=== PATIENT | female | born 1995 | race Caucasian/White ===

== ENCOUNTER 2020-02-02 16:48 | Observation (INO) | payer OTHER, MEDICAID, SELFPAY ==
--- NOTE | ~2020-02-02 | US_ITS ---
EXAMINATION: US right upper quadrant DATE: 02/04/2020 08:18 INDICATION: Right upper quadrant pain TECHNIQUE: Multiple grayscale and Doppler ultrasound images of the abdomen were obtained. COMPARISON: CT dated 02/02/2020 FINDINGS: The region of the pancreas is obscured. Liver has normal echogenicity and contour, with a smooth surf reese. No liver lesion identified. No intrahepatic biliary duct dilation suspected. Portal venous flow was seen in the hepatopetal, normal direction and has normal Doppler waveform. There few small mobile and shadowing gallstones within the relatively decompressed gallbladder. There is gallbladder wall t hickening even accounting for the degree of decompression. There are a few echogenic foci within the gallbladder wall which could represent either calcification or adenomyomatosis. Sonographic Hassan si gn was reported as negative by the traffic expert.The common bile duct measures up to 5 mm in diameter w hich is normal. IMPRESSION: 1. Cholelithiasis with thickened gallbladder wall but without dilation of the gallbladder and without sonographic Hassan's sign and would favor adenomyomatosis and chronic over acute cholecystitis. Reviewed, dictated and finalized at location A. IMPRESSION: 1. Cholelithiasis with thickened gallbladder wall but without dilation of the g allbladder and without sonographic Hassan's sign and would favor adenomyomatosi s and chronic over acute cholecystitis.
--- NOTE | ~2020-02-02 | CT_ITS ---
EXAMINATION: CT abdomen pelvis w con EXAM DATE: 02/02/2020 20:50 INDICATION: Purulent drainage from umbilicus. Abdominal pain. TECHNIQUE: Spiral CT of the abdomen and pelvis was performed following intravenous injection of 100 m L Omnipaque 350. Axial, coronal and sagittal images were reviewed. The dose-length product (DLP) fo r this examination was 473.20 mGy-cm. The exposure was tailored according to patient size (auto mA e xposure control), and iterative reconstruction (ASIR) was used as additional dose reduction technique . Comparison is made to prior examination from 10/31/2010. FINDINGS: The liver, spleen, adrenal glands and pancreas are unremarkable. Gallbladder mucosa is enh ancing, and wall may be thickened, but no adjacent inflammation or calcified cholelithiasis. Recommen d clinical correlation. Portal and splenic veins are patent. Kidneys enhance symmetrically. There is no hydronephrosis. There is IUD which appears to be centrally located within the endometrium, ex pected position. The bladder is unremarkable. There is no retroperitoneal or pelvic lymphadenopathy . Large amount of inflammation, induration along the course of the umbilicus, from the abdominal wa ll to the skin surface, without focal abscess or intra-abdominal abnormality deep to the umbilicus. The appendix is normal. The stomach and small bowel are unremarkable. There is expected amount of c olonic stool. No free intraperitoneal gas. The heart is normal in size. There are no pericardial or pleural effusions. The lung bases are unremarkable. The bones are unremarkable. IMPRESSION: 1. Large amount of induration, inflammation along the umbilical tract to the abdominal wall without abscess or emphysema. Consider cellulitis. 2. Gallbladder appearance with some nonspecific wall thickening suspected but no adjacent inflammati on, dilation or calcified cholelithiasis. If there is right upper quadrant tenderness, consider follo w-up ultrasound. Reviewed, dictated and finalized at location A. IMPRESSION: 1. Large amount of induration, inflammation along the umbilical tract to the a bdominal wall without abscess or emphysema. Consider cellulitis. 2. Gallbladder appearance with some nonspecific wall thickening suspected but no adjacent inflammation, dilation or calcified cholelithiasis. If there is rig ht upper quadrant tenderness, consider follow-up ultrasound.
[2020-02-02 17:02] VITALS: BP 131/80; PULSE 116; RESP 22; TEMP 37.1; O2SAT 100
[2020-02-02 19:47] LABS: Basophils Absolute Auto 0.1 K/mm3 (0.0-0.1); Basophils Percent Auto 0.3 % (0.2-1.2); Eosinophils Absolute Auto 0.2 K/mm3 (0-0.3); Hematocrit 38.9 % (37.0-47.0); Immature Granulocyte Absolute 0.05 K/mm3 (0.00-0.031); Immature Granulocyte Percent A 0.3 % (0-0.5); Lymphocytes Absolute Auto 3.55 K/mm3 (0.9-3.2); Lymphocytes Percent Auto 21.4 % (18.3-44.2); Mean Corpuscular HGB Conc 33.4 g/dl (32-36); Mean Corpuscular Hemoglobin 30.5 pg (26-34); Mean Corpuscular Volume 91.3 fl (80-100); Mean Platelet Volume 9.1 fl (7.4-10.4); Monocytes Absolute Auto 1.4 K/mm3 (0.1-0.6); Monocytes Percent Auto 8.2 % (2.6-8.5); Neutrophils Absolute Auto 11.4 K/mm3 (1.3-6.7); Neutrophils Percent Auto 68.8 % (45.5-73.1); Platelet Count Result 392 k/mm3 (150-375); Red Blood Count 4.26 M/mm3 (4.2-5.4); Red Cell Distribution Width 13.2 % (11.5-14.5); White Blood Count 16.6 K/mm3 (4.5-10.0)
[2020-02-02 20:01] LABS: Blood Urea Nitrogen 13 mg/dL (7-17); CRP 2.2 mg/dL (<1.0); Calcium 8.9 mg/dL (8.4-10.2); Carbon Dioxide 27 mmol/L (22-30); Chloride 103 mmol/L (98-107); Estimated CRCL calculation 106 ml/min; Estimated Glomerular Filt Rate > 60; Glucose 84 mg/dL (65-105); Potassium 3.7 mmol/L (3.4-5.0); Sodium 137 mmol/L (137-145)
[2020-02-02] MEDS: MORPHINE SULFATE 4 MG/ML INJ IV PUSH (20:08)
[2020-02-02] MEDS: ONDANSETRON INJ 4 MG/2 ML VIAL IV PUSH (20:08)
--- NOTE | 2020-02-02 20:08 | ED.WOUNDLAC ---
HPI - Wound/Laceration General Chief Complaint: Wound/Laceration <Matilde Cruz PA-C - Last Filed: 02/02/20 22:09> Stated Complaint: belly button bleeding <MANDEEP Silva Last Filed: 02/02/20 22:09> Time Seen by Provider: 02/02/20 18:25 <Matilde Cruz PA-C - Last Filed: 02/02/20 22:09> Source: patient <MANDEEP Silva Last Filed: 02/02/20 22:09> Mode of arrival: ambulatory <MANDEEP Silva Last Filed: 02/02/20 22:09> Limitations: no limitations <MANDEEP Silva Last Filed: 02/02/20 22:09> History of Present Illness HPI narrative: This is a 24 year old female that presents to the ER for umbilicus wound since yesterday. Reports she noted some redness and pain to the area yesterday. Reports today she started to have pus draining from the area. Denies fever, nausea, vomiting or dysuria. <MANDEEP Silva Last Filed: 02/02/20 22:09> Related Data Home Medications: Home Medications Medication Instructions Recorded Confirmed No Home Medications 02/02/20 02/02/20 <Matilde Cruz PA-C - Last Filed: 02/02/20 22:09> Allergies/Adverse Reactions: Allergies Allergy/AdvReac Type Severity Reaction Status Date / Time No Known Allergies Allergy Verified 02/02/20 17:07 <Matilde Cruz PA-C - Last Filed: 02/02/20 22:09> Review of Systems Review of Systems: Narrative: CONSTITUTIONAL: Denies fever GASTROINTESTINAL: Reports abdominal pain. Denies nausea, vomiting, or diarrhea. GENITOURINARY: Denies dysuria or hematuria. <MANDEEP Silva Last Filed: 02/02/20 22:09> All systems reviewed & are unremarkable except as noted in HPI and below <MANDEEP Silva Last Filed: 02/02/20 22:09> FOR[facility]LY [facility], [facility] Past Medical History Medical History: Medical History (Updated 02/02/20 @ 22:45 by Kim Quiroz MD) History of depression <Matilde Cruz PA-C - Last Filed: 02/02/20 22:09> Surgical History Surgical History: Surgical History (Updated 02/02/20 @ 20:13 by Matilde Cruz PA-C) History of tonsillectomy <Matilde Cruz PA-C - Last Filed: 02/02/20 22:09> Exam Narrative: Exam Narrative: GENERAL: Well-appearing, well-nourished, and in mild acute distress due to pain. HEAD: Normocephalic, atraumatic. EYES: EOMI. CHEST: Clear to auscultation. No respiratory distress. No wheezes rales or rhonchi HEART: Regular rate and rhythm. No murmur heard. Normal peripheral pulses. ABDOMEN: Soft, nondistended, normal active bowel sounds. Umbilicus with small amount of purulent drainage with mild surrounding redness, tender to palpation EXTREMITIES: Normal range of motion. No edema. SKIN: Warm, dry, no rash. NEURO: No focal deficits. Alert and oriented x3. PSYCH: Normal mood and affect <Matilde Cruz PA-C - Last Filed: 02/02/20 22:09> Course TOP PRECIPITATOR OPERATOR HELPER/PA Physician Supervision For this patient encounter, I reviewed the TOP PRECIPITATOR OPERATOR HELPER or PA documentation, treatment plan, and medical decision making; and I had [id number] time with this patient. Saw patient at bedside with physician laboratory chemical assistant. Patient has purulent drainage emerging from the umbilicus. CT shows no evidence of abscess, but shows extensive cellulitis down to the abdominal wall. Patient is tachycardic, tachypneic, and has elevated white count meeting criteria for sepsis. Patient advised that she needs to stay in the hospital for IV antibiotics. Patient states she has a court appearance tomorrow morning and is tearful and crying and stating that she cannot be admitted. Patient allowed to calm down and nursing staff as well as PA spoke with patient. I additionally spoke with patient again and she is agreeable to admission to the hospital. I assumed care of patient from PA at her shift and then made arrangements for patient to be admitted to hospitalist service. <Kim Quiroz MD - Last Filed: 02/02/20 22:45> Consultations Consultation #1: Zoran
[2020-02-02 20:09] LABS: Erythrocyte Sedimentation Rate 19 mm/hr (0-20)
[2020-02-02 20:33] LABS: Lactic Acid Reflex 0.7 mmol/L (0.7-2.1)
[2020-02-02] MEDS: SODIUM CHLORIDE 0.9% IV 1,000 ML 999 ML IV CONT (21:30)
--- NOTE | 2020-02-02 22:22 | PC.NURSE ---
Addendum entered by Kaitlin Holm RN 02/02/20 22:44: BELOW DOCUMENTATION WAS DONE BY KAITLIN HOLM RN Original Note: 1005- This RN, heard loud noise, screaming from pt room 13. ALLYSSA Clayton came to me and stated this patient being verbally abusive to the CLIENT SUPPORT ASSOCIATE, stating she was not going to stay until she could go out and get a cigarette. This RN and Case Picker went to the patients room to see what the noise came from. Patient cursing, crying stating I didn't throw anything, a nurse told me they would go outside with me to smoke on their next round if they could get it in . I asked who told her that, she continued to yell and scream, curse me about being in the room, why the House Sup. was in the room , and why security was outside. Told patient this is a non smoking facility, she is not allowed to go outside and smoke. She continued yelling, crying. She is also yelling at her visitor who is attempting to calm the patient down. Patient continued to yell, get out of here. We asked the patient if she wanted to be admitted, she yelled I need time, I have a court date tomorrow, I may go to skilled nursing . The housekeeper head and I left the room to give her a moment.
--- NOTE | 2020-02-02 22:31 | PC.NURSE ---
Addendum entered by Kaitlin Holm RN 02/02/20 22:44: BELOW DOCUMENTATION WAS DONE BY KAITLIN HOLM RN Original Note: 1003- This RN could hear patient yelling , screaming & cursing. We returned to the room, she was on the phone yelling, screaming, cursing, crying. We asked what was going on. She continued to demand going outside to have a cigarette, she stated why did someone tell me they would go outside with me to smoke, why are you in here?? Explained to her we returned to her room due to her behavior. Patient was told this behaviour must be stopped. I told patient we could ask ED MD for med or a nicotine patch. that is not the same, I want to have a cigarette . We asked again if she was going to stay, I don't fucking know you told me you would give me a minuete . At that time, I told her she had 5 minutes, again re-iterated her behaviour must stop.
--- NOTE | 2020-02-02 22:35 | PC.NURSE ---
Addendum entered by Kaitlin Holm RN 02/02/20 22:45: BELOW DOCUMENTATION WAS DONE BY KAITLIN HOLM RN Original Note: 1017- I returned to the room to see if this patient wanted to be admitted. She then stated yes she would stay, she asked if she could have food delivered. As I began to answer her, she again started yelling , crying cursing. I offered her a lunch box. I dont fucking want that i am starving and have been here since 4:00. Dr. Quiroz then entered the room to discuss admission with the patient. This patient continued to state she did not want me in the room. I stepped out. Food box left in the room with the patient.
[2020-02-02 23:31] VITALS: BP 99/77; PULSE 87; RESP 18; O2SAT 100
[2020-02-02] MEDS: LACTATED RINGERS 1,000 ML 125 ML IV CONT (23:45)
--- NOTE | 2020-02-02 23:52 | ADMGEN ---
This patient, Gretta Andres, was admitted to 2 Medical Room 260-. Patient/family oriented to hospital policies and general routines including ID bracelet, bed and alarms, visiting hours, pain management, procedures, bathroom and other care routines, personal items, smoking policy, room service/diet, and visiting hours. Valuables list has been completed. Information on how to activate the Rapid Response Team has been discussed. Patient/Family are encouraged to report perceived risks to care and to ask questions if they do not understand what they are told or what they should do.
[2020-02-03] MEDS: NICOTINE (*PBKC) 21 MG PATCH 1 PATCH TRANSDERM (00:04)
[2020-02-03 00:36] VITALS: BP 105/56; PULSE 94; RESP 18; TEMP 36.1; O2SAT 100; BMI 29.6
[2020-02-03] MEDS: ACETAMINOPHEN 325 MG TABLET 650 MG PO (03:29)
[2020-02-03 06:00] VITALS: BP 109/55; PULSE 80; RESP 16; TEMP 35.8; O2SAT 96
[2020-02-03] MEDS: LACTATED RINGERS 1,000 ML 125 ML IV CONT (06:08)
--- NOTE | 2020-02-03 09:48 | PM.IMHP ---
H&P: HPI History of Present Illness Chief complaint: Sepsis, cellulitis Narrative: Gretta Andres is a 24 year old female previously healthy who presented to the ER from work when she developed drainage from her belly button. The patient noticed erythema and pain in her umbilical region the day before presentation. Later that evening or the following days she noticed some purulent-appearing drainage from the area. She denies any fevers or chills or known injury to her belly button. She does have a umbilical piercing but has not had any Jewelery present for over a year. She reports that the pain is just around her umbilicus. She denies any history of recurrent skin infections or abscesses. No in her family has had a history of recurrent skin infections either. She lives with her 2 in 3-year-old children. Review of Systems Review of Systems: Narrative: 12 systems were reviewed with pertinent positives and negatives per HPI. Except as documented in the HPI, all other systems were reviewed and are negative. However was limited as the patient was a poor historian and less than cooperative with the history taking process. REPLACED BY [facility] Past Medical History Medical History (Updated 02/02/20 @ 22:45 by Kim Quiroz MD) History of depression Surgical History Surgical History (Updated 02/02/20 @ 20:13 by Matilde Cruz PA-C) History of tonsillectomy Family History Family History (Updated 02/02/20 @ 23:[address] RN) Mother Cancer Social History Social History (Updated 02/03/20 @ 09:53 by Olivia Ellis DO) Smoking packs per day: 1.5 Smoking cigarettes per day: 30.0 Years smoked: 8 Smoking pack-years: 12.00 Smoking status: Heavy tobacco smoker Tobacco type: cigarettes Alcohol intake: never Substance use: current Substance use type: marijuana Living arrangements: with family Additional living arrangements comments: She lives with her 2 and 3-year-old children. Occupation/Education: occupation Additional occupation/education comments: She works at [employer]. Spiritual care concerns: No Agree to blood products: Yes Meds Home Medications and Allergies Home Medications Medication Instructions Recorded Confirmed Type No Home Medications 02/02/20 02/02/20 History Allergies Allergy/AdvReac Type Severity Reaction Status Date / Time No Known Allergies Allergy Verified 02/02/20 17:07 Vital Signs Vital Signs - 24 hr 02/02/20 17:02 02/02/20 23:31 02/03/20 00:36 Temperature 98.7 F 96.9 F L Pulse Rate 116 H 87 94 Respiratory Rate 22 H 18 18 Blood Pressure 131/80 99/77 L 105/56 L Pulse Oximetry 100 100 100 02/03/20 06:00 Temperature 96.4 F L Pulse Rate 80 Respiratory Rate 16 Blood Pressure 109/55 L Pulse Oximetry 96 Exam Narrative: Exam Narrative: PHYSICAL EXAM: WEIGHT 75.8 kg BMI 29.6 General: No acute distress, well-developed well-nourished, appears stated age HEENT: Mucous membranes are moist, no oral pharyngeal erythema, pupils are equal and reactive, head is normocephalic atraumatic Neck: No lymphadenopathy, trachea midline, no JVD Respiratory: Clear to auscultation bilaterally, no increased work of breathing Cardiovascular: Normal S1-S2, 2+ bilateral radial and pedal pulses the, regular rate and rhythm Gastrointestinal: Purulence drainage from the umbilicus, no surrounding erythema, significant tenderness immediately surrounding the umbilicus, normoactive bowel sounds, nondistended Skin: Multiple tattoos, normal temperature, non jaundice Extremities: No clubbing, cyanosis or edema Neurological: Alert, arousable, speech is clear, no facial asymmetry Psychiatric: Flat affect, patient is recur calcified trend in talking to staff, will not need eye contact H&P: Results Labs Labs: Short CBC 02/02/20 Range/Units 19:41 WBC 16.6 H (4.5-10.0) K/mm3 Hgb 13.0 (12.0-15.0) g/dL Hct 38.9 (37.0-47.0) % Plt Co
[2020-02-03 11:29] LABS: Basophils Absolute Auto 0.1 K/mm3 (0.0-0.1); Basophils Percent Auto 0.5 % (0.2-1.2); Eosinophils Absolute Auto 0.4 K/mm3 (0-0.3); Eosinophils Percent Auto 3.3 % (0-4.4); Hematocrit 38.3 % (37.0-47.0); Hemoglobin 12.5 g/dL (12.0-15.0); Immature Granulocyte Absolute 0.02 K/mm3 (0.00-0.031); Immature Granulocyte Percent A 0.2 % (0-0.5); Lymphocytes Absolute Auto 3.37 K/mm3 (0.9-3.2); Lymphocytes Percent Auto 27.2 % (18.3-44.2); Mean Corpuscular HGB Conc 32.6 g/dl (32-36); Mean Corpuscular Hemoglobin 30.6 pg (26-34); Mean Corpuscular Volume 93.6 fl (80-100); Monocytes Absolute Auto 1.1 K/mm3 (0.1-0.6); Monocytes Percent Auto 9.1 % (2.6-8.5); Neutrophils Absolute Auto 7.4 K/mm3 (1.3-6.7); Neutrophils Percent Auto 59.7 % (45.5-73.1); Platelet Count Result 383 k/mm3 (150-375); Red Blood Count 4.09 M/mm3 (4.2-5.4); Red Cell Distribution Width 13.2 % (11.5-14.5); White Blood Count 12.4 K/mm3 (4.5-10.0)
[2020-02-03 14:00] VITALS: BP 122/81; PULSE 85; RESP 19; TEMP 36.2; O2SAT 100
--- NOTE | 2020-02-03 16:10 | PM.IMPN ---
Progress Note: A&P Assessment and Plan (1) Sepsis: Qualifiers: Sepsis acute organ dysfunction status: without acute organ dysfunction Sepsis type: sepsis due to unspecified organism Qualified Code(s): A41.9 - Sepsis, unspecified organism Code(s): A41.9 - Sepsis, unspecified organism Status: Acute Assessment and Plan: The patient met SIRS criteria at presentation to the ED with HR 116, RR 22, and WBC 16.6. Lactic was WNL at 0.7. CT abd/pelvis revealed inflammation and induration along the course of the umbilicus, consistent with cellulitis, extending from the abdominal wall to the skin surface without focal abscess or intra-abdominal abnormality deep to the umbilicus. Blood cultures were obtained and are pending. The pt received 1L fluid bolus in the ED She is tolerating PO intake well so I will discontinue IV fluids Continue IV zosyn (2) Cellulitis: Qualifiers: Site of cellulitis: trunk Site of cellulitis of trunk: abdominal wall Qualified Code(s): L03.311 - Cellulitis of abdominal wall Code(s): L03.90 - Cellulitis, unspecified Status: Acute Assessment and Plan: Preliminary wound culture reveals gram positive cocci and gram negative bacilli. WBC is improving and is 12.4 today. Her pain has improved and the area of induration has decreased significantly in size per pt. Will discontinue cefazolin and begin zosyn for better gram negative coverage Await final culture results (3) Tobacco dependence: Code(s): F17.200 - Nicotine dependence, unspecified, uncomplicated Status: Acute Assessment and Plan: Nicoderm patch while inpatient I spent 10 minutes discussing the importance of smoking cessation with the pt today (4) Right upper quadrant pain: Code(s): R10.11 - Right upper quadrant pain Status: Acute Assessment and Plan: CT abd/pelvis revealed nonspecific wall thickening of the gallbladder without adjacent inflammation, dilation, or calcified cholelithiasis. She has mild RUQ tenderness on physical exam and reports occasional post-prandial pain. Will order RUQ US (5) Urinary hesitancy: Code(s): R39.11 - Hesitancy of micturition Status: Acute Assessment and Plan: Will order UA. Subjective Date/time seen: 02/03/20 16:10 Interval history: Mrs. Andres is seen and examined at bedside. She reports that her abdominal wall discomfort has improved significantly and is now a 5/10. She states that previously, it was 10/10. She states that she can now move without having pain. She denies fever and chills. Her appetite is good. She denies SOB, cough, and chest pain. She denies headaches, lightheadedness, and dizziness. She reports intermittent urinary hesistancy. She does report occasional discomfort after eating. She denies nausea and vomiting. Review of Systems Review of Systems: All systems reviewed & are unremarkable except as noted in HPI and below Exam Narrative: Exam Narrative: General: Well-developed, well-nourished, and cooperative 24 y.o. female sitting in the semi-recumbant position in bed. She is in no acute distress. HEENT: Normocephalic and atraumatic. Sclera anicteric. Conjunctivae and lids normal. PERRL. EOMI. Mucous membranes moist. Posterior pharynx without erythema or exudate. Neck: Supple. No lymphadenopathy or masses. Cardiac: Regular rate and rhythm. S1 and S2 normal. Lungs: Normal respiratory effort. Lungs are clear to auscultation bilaterally. Abdomen: Bowel sounds present in all four quadrants. Abdomen is soft. She has periumbilical tenderness to palpation. She has mild RUQ tenderness. Hassan sign is negative. Extremities: No lower extremity edema. Palpable DP and PT bilaterally. Neurological: Alert and oriented x3. No focal neurological deficits noted. Speech is clear. Skin: 1x1cm indurated area at the 12:00 aspect of the umbilicus. Small abrasions in th
[2020-02-03 18:16] LABS: Add Urine Microscopic? NO; Appearance Urine Clear (Clear); Bilirubin Urine Negative (Negative); Blood Urine Negative (Negative); Color Urine Colorless (Yellow); Glucose Urine UA Negative (Negative); Ketones Urine Negative (Negative); Leukocyte Esterase Ur Negative LEU/UL (Negative); Nitrate Urine Negative (Negative); Protein Urine Negative (Negative); Specific Grav Ur 1.009 (1.001-1.035); Urobilinogen Urine Negative mg/dL (<2.0)
[2020-02-03] MEDS: IBUPROFEN 400 MG TABLET PO (19:59)
[2020-02-03 22:00] VITALS: BP 115/61; PULSE 87; RESP 16; TEMP 36.1; O2SAT 100
[2020-02-04] MEDS: NICOTINE (*PBKC) 21 MG PATCH 1 PATCH TRANSDERM (04:19)
[2020-02-04 05:15] LABS: Basophils Absolute Auto 0.1 K/mm3 (0.0-0.1); Basophils Percent Auto 0.4 % (0.2-1.2); Eosinophils Absolute Auto 0.5 K/mm3 (0-0.3); Eosinophils Percent Auto 3.7 % (0-4.4); Hematocrit 37.3 % (37.0-47.0); Hemoglobin 11.9 g/dL (12.0-15.0); Immature Granulocyte Absolute 0.04 K/mm3 (0.00-0.031); Immature Granulocyte Percent A 0.3 % (0-0.5); Lymphocytes Absolute Auto 4.32 K/mm3 (0.9-3.2); Lymphocytes Percent Auto 35.1 % (18.3-44.2); Mean Corpuscular HGB Conc 31.9 g/dl (32-36); Mean Platelet Volume 9.5 fl (7.4-10.4); Monocytes Absolute Auto 1.2 K/mm3 (0.1-0.6); Monocytes Percent Auto 9.4 % (2.6-8.5); Neutrophils Absolute Auto 6.3 K/mm3 (1.3-6.7); Neutrophils Percent Auto 51.1 % (45.5-73.1); Platelet Count Result 382 k/mm3 (150-375); Red Blood Count 3.97 M/mm3 (4.2-5.4); Red Cell Distribution Width 13.3 % (11.5-14.5); White Blood Count 12.3 K/mm3 (4.5-10.0)
[2020-02-04 05:20] VITALS: BP 116/67; PULSE 69; RESP 16; TEMP 36.2; O2SAT 100
[2020-02-04 05:27] LABS: Alanine Aminotransferase 25 U/L (4-35); Albumin Level 3.5 g/dL (3.5-5.1); Alkaline Phosphatase 82 U/L (38-126); Aspartate Amino Transferase 23 U/L (14-36); Bilirubin,Total 0.1 mg/dL (0.2-1.3); Blood Urea Nitrogen 15 mg/dL (7-17); Calcium 8.8 mg/dL (8.4-10.2); Carbon Dioxide 29 mmol/L (22-30); Chloride 104 mmol/L (98-107); Estimated CRCL calculation 93 ml/min; Estimated Glomerular Filt Rate > 60; Glucose 93 mg/dL (65-105); Potassium 4.1 mmol/L (3.4-5.0); Sodium 137 mmol/L (137-145)
--- NOTE | 2020-02-04 10:12 | PC.NURSE ---
MAR edits made to correct name of nurse who administered from Lesia Hernandez to Sharon Vega
--- NOTE | 2020-02-04 11:39 | PM.CNGS ---
Assessment and Plan Assessment and plan (1) Cellulitis: Qualifiers: Site of cellulitis: trunk Site of cellulitis of trunk: abdominal wall Qualified Code(s): L03.311 - Cellulitis of abdominal wall Code(s): L03.90 - Cellulitis, unspecified Status: Acute Assessment and Plan: The patient has umbilical cellulitis that seems to be improving with current treatment. I reviewed the CT scan and discussed with the patient in detail. There is no evidence of an abscess on the CT scan or on my exam. WBC continues to improve and the patient seems to be improving clinically as well. There may have been some drainage from the umbilicus that was cultured in the ER, but this only showed growth of normal skin jeramy. I did discuss the case with Dr. Luis. I would recommend continuing with antibiotic therapy for the cellulitis and follow-up with her PCP. It would be okay at this point to switch the patient to oral antibiotic therapy from our standpoint and be discharged home. Thank you for allowing me to evaluate the patient in consultation. Please let us know if there are any surgical needs in the future. (2) Tobacco dependence: Code(s): F17.200 - Nicotine dependence, unspecified, uncomplicated Status: Chronic Assessment and Plan: Encouraged cessation. (3) Cholelithiasis: Code(s): K80.20 - Calculus of gallbladder without cholecystitis without obstruction Status: Acute Assessment and Plan: No evidence of acute cholecystitis. This is an incidental finding that does not correlate with her current symptoms. She is asymptomatic at this time and has been tolerating a diet. I suggested following a low fat diet in the future and discussed the complications that can arise with gallbladder disease, including the signs and symptoms to be aware of. If she becomes symptomatic or has new issues regarding her gallbladder, then we would be happy to evaluate her on an outpatient basis in the future. History of Present Illness Consult details Consult date: 02/11/20 Reason for consult: other (Umbilical cellulitis) Requesting physician: Nubia Mi PA-C Narrative: This is a 24-year-old female who is otherwise healthy, and presented to the emergency department on 02/02/20 with umbilical pain. The patient reportedly developed some umbilical pain with redness 1-2 days prior to coming into the emergency department. She denies any injury to the umbilical area or recent piercings. Denies fevers, chills, nausea, or vomiting. She reports that she started to have worsening pain and pus-like bloody drainage from the umbilicus and decided to present to the ER for further evaluation. CT scan of the abdomen and pelvis in the emergency department showed a large amount of induration, inflammation along the umbilical tract to the abdominal wall without abscess or emphysema, likely cellulitis. Also incidentally noted was nonspecific suspected gallbladder wall thickening with no adjacent inflammation, dilation, or calcified cholelithiasis. White blood cell count 16,600 and CRP 2.2. The patient was admitted to the Hospitalist service and started on IV antibiotics. She has been improving on the antibiotics and her white blood cell count is now down to 12,300. Right upper quadrant ultrasound was also ordered due to the incidental findings on the CT scan, and showed cholelithiasis with a thickened gallbladder wall, with no other signs of acute cholecystitis. Our service has been consulted to evaluate the umbilical cellulitis. The patient is now being seen on the medical floor. She reports her umbilical pain has improved significantly since admission. She also denies any drainage from the umbilicus since admission. Reports the umbilicus is tank tender. Reports having a previous umbilical piercing, but has not had any jewelry in this for years. No history of skin infections or MRSA infections in the past. Reports that she is tolerating a reg
--- NOTE | 2020-02-04 12:30 | PM.DS ---
DS: Diagnosis Admitting Diagnosis Admitting Diagnosis: Cellulitis of abdominal wall Discharge Diagnosis (1) Sepsis: Qualifiers: Sepsis acute organ dysfunction status: without acute organ dysfunction Sepsis type: sepsis due to unspecified organism Qualified Code(s): A41.9 - Sepsis, unspecified organism Code(s): A41.9 - Sepsis, unspecified organism Status: Resolved (2) Cellulitis: Qualifiers: Site of cellulitis: trunk Site of cellulitis of trunk: abdominal wall Qualified Code(s): L03.311 - Cellulitis of abdominal wall Code(s): L03.90 - Cellulitis, unspecified Status: Acute (3) Tobacco dependence: Code(s): F17.200 - Nicotine dependence, unspecified, uncomplicated Status: Chronic (4) Right upper quadrant pain: Code(s): R10.11 - Right upper quadrant pain Status: Resolved (5) Urinary hesitancy: Code(s): R39.11 - Hesitancy of micturition Status: Acute DS: Summary Hospital Course Reason for hospitalization: Cellulitis Hospital Course: Mrs. Andres is a 24 y.o. female with PMH significant for tobacco dependence who presented to the ED due to c/o purulent drainage from her umbilicus with associated erythema and pain. She has a piercing in the area but reported no jewelry use for years. The pt met SIRS criteria in the ED with HR 116, RR 22, and WBC 16.6. Blood and wound cultures were obtained. Initial workup in the ED revealed WBC 12,300, Hb 11.9, Hct 37.3, metabolic panel unremarkable, and lactic WNL at 0.7. CT abd/pelvis revealed inflammation and induration along the course of the umbilicus, consistent with cellulitis, extending from the abdominal wall to the skin surface without focal abscess or intra-abdominal abnormality deep to the umbilicus. She was treated with IV antibiotics and given 1L fluid bolus. She was admitted to the hospitalist service for further evaluation and treatment. Wound culture revealed gram positive cocci and gram negative bacilli so IV zosyn was initiated for better gram negative coverage. The erythema, induration, and pain improved significantly with antibiotics. Final culture revealed normal skin jeramy. She complainted of mild urinary hesistancy and UA was negative for UTI. General surgery was consulted for her umbilical cellulitis and recommended continued antibiotic therapy. There was an incidental finding of nonspecific wall thickening of the gallbladder without adjacent inflammation, dilation, or calcified cholelithiasis. RUQ US revealed cholelithiasis with thickened gallbladder wall but without dilation of the gallbladder and without sonographic Hassan's sign. She was evaluated by general surgery and encouraged to follow-up outpatient should she develop symptoms to warrant elective cholecystectomy. Smoking cessation was discussed and encouraged at length. Pharmacologic options were discussed and offered and the pt declined. Additional instructions are listed below. She was discharged in stable condition. Time spent discussing smoking cessation with patient: more than 10 minutes Status at Discharge Functional status at discharge: independent ambulation Overall status at discharge: patient is progressing back to baseline Time Spent with Patient Time attestation: Total time spent providing and/or coordinating discharge services: 30 minutes Exam Narrative: Exam Narrative: General: Well-developed, well-nourished, 24 y.o. female who appears stated age lying supine in bed. She is in no acute distress. HEENT: Normocephalic and atraumatic. Sclera anicteric. EOMI. Mucous membranes moist. Neck: Supple. No lymphadenopathy or masses. Cardiac: Regular rate and rhythm. S1 and S2 normal. Lungs: Lungs are clear to auscultation bilaterally. Abdomen: Bowel sounds normoactive. Abdomen is soft and non-distended. She has mild periumbilical tenderness to palpation at site of cellulitis. No RUQ tenderness. Extremities: No lower extremity edema. Palpabl
--- NOTE | 2020-02-04 13:18 | PC.NURSE ---
Patient called diamond cutter light and was very upset about her food tray being taken out of her room while she was sleeping. I went into patients room to apologize for the misunderstanding. The patient care professional thought she was finished because over half of tray was gone and patient was sleeping. Patient then went on to cuss the patient care professional and myself out and demanded we get out of her room. Patient went into restroom and slammed the door. We left room and ordered her another tray. When taking her new tray into room patient was calm.
[2020-02-04 14:00] VITALS: BP 120/66; PULSE 78; RESP 16; TEMP 36.9; O2SAT 99
--- NOTE | 2020-02-04 16:17 | PC.NURSE ---
Patients grandmother arrived to pick patient up for discharge. Went into room to help patient get packed up to go home and patient refused to get up, patient ignored patient home health caregiver and myself when talking with her. Patient began to become verbally confrontational using foul language towards myself and other staff. At this time security was called to come to patients room. Patient was wanting to speak with doctor. I called Dr. Ashton and discussed patient. Nubia SPIVEY was in patients room twice today explaining discharge instructions and also Latoya GONZALEZ had seen patient today and was agreeable for patient to be discharged. Finally after talking with patient about what the doctor had said she packed her stuff up for discharge.
== END 2020-02-04 16:08 | disposition home or self-care (01) ==
LOC: ANHED 22:56 → ANH2MED 22:59
PROVIDERS: Physician Assistant; Admitting Provider Internal Medicine; Emergency Provider Emergency Medicine; PCP Internal Medicine; Visit Provider Physician Assistant
DX: A41.9 Sepsis, unspecified organism (principal); L03.311 Cellulitis of abdominal wall; F17.210 Nicotine dependence, cigarettes, uncomplicated; R39.11 Hesitancy of micturition; K80.20 Calculus of gallbladder without cholecystitis without obstruction
CPT/HCPCS: 36415; 74177; 76705; 80048; 80053; 81003; 81025; 83605; 85025; 85652; 86140; 87040; 87070; 87205; 96361; 96365; 96367; 96375; 99285; A9270; G0378; J0690; J2270; J2405; J2543; J7030; J7120; Q9967

== ENCOUNTER 2020-11-18 11:40 | Observation (INO) | payer OTHER, MEDICAID, SELFPAY ==
[2020-11-18] VITALS (8 sets, daily range): BP systolic 112–146; BP diastolic 59–100; PULSE 50–120; RESP 14–20; TEMP 36.1–36.7; O2SAT 97–100; BMI 33.2
--- NOTE | ~2020-11-18 | CT_ITS ---
EXAMINATION: CTA chest PE protocol DATE: 11/18/2020 14:58 AUTOMATIC SERGING MACHINE OPERATOR INDICATION: Elevated d-dimer. Right-sided chest pain. TECHNIQUE: Computed tomographic angiography (CTA) of the chest was performed with 100 mL Omnipaque-35 0 intravenous contrast. The dose-length product was 367.71 mGy-cm. Maximum intensity projection 3D-re constructions of the aorta and other arteries were constructed by the technologist on a separate work station. COMPARISON: No prior studies for comparison. FINDINGS: Study is technically adequate without evidence for pulmonary embolism. Heart size normal. N o significant pleural or pericardial effusion. No thoracic lymphadenopathy. There is residual thymic tissue in the anterior mediastinum. No evidence for aortic aneurysm or dissection. No significant ple ural or pericardial effusion. The gallbladder wall is thickened with possible pericholecystic fluid. There are gallstones. No biliary dilatation. No pneumothorax. No focal airspace consolidation. No pul monary nodules or masses. IMPRESSION: 1. Cholelithiasis with gallbladder wall thickening and possible pericholecystic fluid. Consider acute cholecystitis in the appropriate clinical setting. Reviewed, dictated and finalized at location A. MATIC SERGING MACHINE OPERATOR
--- NOTE | ~2020-11-18 | US_ITS ---
EXAMINATION: US abdomen limited DATE: 11/18/2020 13:58 INDICATION: Right upper quadrant abdominal pain. TECHNIQUE: Multiple grayscale and Doppler ultrasound images of the abdomen were obtained. COMPARISON: Ultrasound 01/31/2020, 07/02/2015, CT abdomen and pelvis 02/02/20 FINDINGS: The visualized portions of the head and body of the pancreas are normal. The liver is fidel l without focal lesion. There is normal flow in main portal vein. The gallbladder is normal in size a nd contains gallstones. Gallbladder wall thickening is noted. There was no sonographic Hassan sign. T he common duct is normal and measures 3 mm. IMPRESSION: 1. Cholelithiasis. Chronic gallbladder wall thickening may be seen with chronic cholecystitis or certified vehicle fire investigator jayshree liver disease. Reviewed, dictated and finalized at location A. SALES REPRESENTATIVE IMPRESSION: 1. Cholelithiasis. Chronic gallbladder wall thickening may be seen with chronic cholecystitis or chronic liver disease.
--- NOTE | 2020-11-18 12:49 | ED.ABDPAIN ---
HPI - Abdominal Pain General Chief Complaint: Abdominal Pain Stated Complaint: right rib, shoulder pain Time Seen by Provider: 11/18/20 12:20 Source: patient Mode of arrival: ambulatory Limitations: no limitations History of Present Illness HPI narrative: Patient is a 25-year-old female complaining of right upper quadrant pain, sharp, 9 out of 10, radiating to her right upper shoulder accompanied by nausea that started this morning. Patient states that she has a history of gallstones. Patient denies any chest pain, shortness of breath, fever, chills or urinary symptoms. Related Data Allergies Allergy/AdvReac Type Severity Reaction Status Date / Time No Known Allergies Allergy Verified 11/18/20 11:45 Review of Systems Review of Systems: All systems reviewed & are unremarkable except as noted in HPI and below Constitutional: Constitutional: Denies body ache(s), Denies chills, Denies excessive sweating, Denies fatigue, Denies fever(s), Denies headache(s), Denies lethargy, Denies malaise, Denies weakness and Denies weight loss Eyes: Eyes: Denies blurry vision, Denies change in vision and Denies loss of vision ENT: Denies dizziness, Denies ear discharge, Denies headache(s), Denies lip swelling, Denies epistaxis, Denies nasal congestion, Denies neck pain, Denies throat swelling and Denies tongue swelling Cardiovascular: Cardiovascular: Denies chest pain, Denies chest pain at rest, Denies chest pain with activity, Denies diaphoresis, Denies rapid heart rate, Denies edema, Denies irregular heart rhythm, Denies lightheadedness, Denies palpitations, Denies dyspnea and Denies dyspnea on exertion Respiratory: Respiratory: Denies chest congestion, Denies cough, Denies hemoptysis, Denies dyspnea and Denies dyspnea on exertion Gastrointestinal: Gastrointestinal: Denies melena, Denies hematochezia, Denies diarrhea, Denies vomiting and Denies hematemesis Musculoskeletal: Musculoskeletal: Denies abnormal gait, Denies deformity, Denies joint swelling, Denies limited range of motion, Denies neck pain and Denies numbness Neurologic: Denies Abnormal speech present, Denies abnormal gait, Denies confusion, Denies dizziness, Denies headache(s), Denies focal weakness, Denies loss of vision, Denies numbness, Denies Other visual disturbances, Denies Sensory deficit (Neuro) and Denies weakness Psychiatric: Psychiatric: Denies confusion, Denies depression, Denies auditory hallucinations, Denies homicidal ideation and Denies suicidal ideation Endocrine: Endocrine: Denies cold intolerance, Denies excessive sweating, Denies fatigue, Denies heat intolerance and Denies palpitations Hematologic/Lymphatic: Hematologic/Lymphatic: Denies easy bleeding and Denies easy bruising Allergic/Immunologic: Allergic/Immunologic: Denies lip swelling, Denies throat swelling and Denies tongue swelling PMFSH Past Medical History Medical History (Updated 11/18/20 @ 16:59 by Barrie Ram MD) History of depression Surgical History Surgical History History of tonsillectomy Family History Family History Mother Cancer Social History Social History Smoking packs per day: 1.5 Smoking cigarettes per day: 30.0 Years smoked: 8 Smoking pack-years: 12.00 Smoking status: Heavy tobacco smoker Tobacco type: cigarettes Alcohol intake: never Substance use: current Substance use type: marijuana Additional living arrangements comments: She lives with her 2 and 3-year-old children. Additional occupation/education comments: She works at [employer]. Spiritual care concerns: No Agree to blood products: Yes Exam Const: General: cooperative, healthy appearing, comfortable, no acute distress, well developed, alert and awake; No confusion Orientation/consciousness: oriented to person
[2020-11-18] MEDS: KETOROLAC 30 MG/ML VIAL (*BKC) IV PUSH ×2 (12:56→20:01)
[2020-11-18] MEDS: SODIUM CHLORIDE 0.9% IV 1,000 ML 999 ML IV CONT (12:58)
[2020-11-18 13:12] LABS: Basophils Absolute Auto 0.1 K/mm3 (0.0-0.1); Basophils Percent Auto 0.4 % (0.2-1.2); Eosinophils Absolute Auto 0.2 K/mm3 (0-0.3); Eosinophils Percent Auto 1.4 % (0-4.4); Hematocrit 42.4 % (37.0-47.0); Hemoglobin 14.4 g/dL (12.0-15.0); Immature Granulocyte Absolute 0.05 K/mm3 (0.00-0.031); Immature Granulocyte Percent A 0.4 % (0-0.5); Mean Corpuscular Volume 91.4 fl (80-100); Mean Platelet Volume 9.1 fl (7.4-10.4); Monocytes Absolute Auto 1.4 K/mm3 (0.1-0.6); Monocytes Percent Auto 10.3 % (2.6-8.5); Neutrophils Absolute Auto 8.7 K/mm3 (1.3-6.7); Neutrophils Percent Auto 64.5 % (45.5-73.1); Platelet Count Result 429 k/mm3 (150-375); Red Blood Count 4.64 M/mm3 (4.2-5.4); Red Cell Distribution Width 13.2 % (11.5-14.5); White Blood Count 13.5 K/mm3 (4.5-10.0)
[2020-11-18 13:33] LABS: D Dimer 0.66 ug/mL (<0.48)
[2020-11-18 13:41] LABS: Lipase 39 U/L (23-300)
--- NOTE | 2020-11-18 14:05 | PC.NURSE ---
called lab about CMP, states chemistry machine is currently down. will process when lab machine is working again.
[2020-11-18 14:49] LABS: Estimated CRCL calculation 126 ml/min; Estimated Glomerular Filt Rate > 60
[2020-11-18 17:05] LABS: Alanine Aminotransferase 37 U/L (4-35); Albumin Level 4.1 g/dL (3.5-5.1); Alkaline Phosphatase 71 U/L (38-126); Anion Gap 6 mmol/L (8-16); Aspartate Amino Transferase 24 U/L (14-36); Bilirubin,Total 0.6 mg/dL (0.2-1.3); Blood Urea Nitrogen 13 mg/dL (7-17); Carbon Dioxide 25 mmol/L (22-30); Chloride 107 mmol/L (98-107); Estimated CRCL calculation 126 ml/min; Estimated Glomerular Filt Rate > 60; Glucose 86 mg/dL (65-105); Potassium 4.3 mmol/L (3.4-5.0); Sodium 138 mmol/L (137-145)
--- NOTE | 2020-11-18 19:06 | ADMGEN ---
This patient, Gretta Andres, was admitted to 3 Med Surg Room 316-01 @1840. Patient/family oriented to hospital policies and general routines including ID bracelet, bed and alarms, visiting hours, pain management, procedures, bathroom and other care routines, personal items, smoking policy, room service/diet, and visiting hours. Information on how to activate the Rapid Response Team has been discussed. Patient/Family are encouraged to report perceived risks to care and to ask questions if they do not understand what they are told or what they should do.
[2020-11-19] MEDS: NICOTINE (*PBKC) 21 MG PATCH 1 PATCH TRANSDERM (05:36)
[2020-11-19] MEDS: KETOROLAC 30 MG/ML VIAL (*BKC) IV PUSH ×2 (05:39→13:54)
[2020-11-19 06:00] VITALS: BP 99/63; PULSE 72; RESP 20; TEMP 36.8; O2SAT 100
[2020-11-19 08:00] VITALS: PULSE 72; RESP 20; O2SAT 100
[2020-11-19] MEDS: IBUPROFEN 400 MG TABLET 800 MG PO (08:13)
--- NOTE | 2020-11-19 09:44 | PC.NURSE ---
patient arrived to room 220-02 at 1030, has no c/o pain or discomfort at this time. getting clear liquid breakfast. Acclimated to room. IV intact to left AC. pleasant, alert and oriented X4
--- NOTE | 2020-11-19 10:13 | PC.NURSE ---
This patient, Gretta Andres, was transferred to [[facility]] on 11/19/20 at 0930. Personal belongings sent with patient. Report given to [Geraldine]. Appropriate documentation sent with patient.
--- NOTE | 2020-11-19 11:30 | PM.IMHP ---
H&P: HPI History of Present Illness Date/Time: 11/19/20 11:30 Chief Complaint: Right upper quadrant pain Narrative: Gretta Andres is a 25 year old female Who presented to the emergency department 11/18/20 with complaints of right upper quadrant pain radiating to her back and right shoulder. She has been having pain since 11/16/2020 in the morning. She states that the night before she did eat some pizza, but did not notice any pain at that time. She did have some nausea on 11/15/2020. She denies prior symptoms like this in the past. She was noted to have cholelithiasis on a CT scan about 1 year ago, but she was asymptomatic at that time surgery was recommended. Her pain has been constant but is controlled with the Toradol that was given in the emergency department. She is tolerating clear liquids, but has not tried any solid food since coming into hospital. Review of Systems Review of Systems: All systems reviewed & are unremarkable except as noted in HPI and below Eyes: Eyes: Denies change in vision ENT: Denies hearing loss, Denies neck pain and Denies sore throat Cardiovascular: Cardiovascular: Denies chest pain and Denies dyspnea Respiratory: Respiratory: Denies cough, Denies dyspnea and Denies wheezing Genitourinary: Genitourinary: Denies hematuria and Denies dysuria Musculoskeletal: Musculoskeletal: Denies arthralgias, Denies joint swelling and Denies neck pain Allergic/Immunologic: Allergic/Immunologic: Denies wheezing PMFSH Past Medical History Medical History (Updated 11/19/20 @ 11:35 by Morales Luis DO) History of depression Surgical History Surgical History History of tonsillectomy Family History Family History Mother Cancer Sibling Craniosynostosis Sibling Anemia Sibling Asthma Social History Social History Smoking packs per day: 1 Smoking cigarettes per day: 20.0 Years smoked: 10 Smoking pack-years: 10.00 Smoking status: Current every day smoker Tobacco type: cigarettes Alcohol intake: current Drinks per week: 6 Substance use: current Substance use type: marijuana Other substance usage details: Former Methamphetamine user, 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 Additional occupation/education comments: She works at [employer]. Gender identity (if verbalized by the patient): Female Spiritual care concerns: No Agree to blood products: Yes Meds Home Medications and Allergies Home Medications Medication Instructions Recorded Confirmed Type ibuprofen 800 mg PO Q8-12H PRN 11/18/20 11/18/20 History Allergies Allergy/AdvReac Type Severity Reaction Status Date / Time No Known Allergies Allergy Verified 11/18/20 19:03 Vital Signs Vital Signs - 24 hr 11/18/20 11:43 11/18/20 14:38 11/18/20 16:39 Temperature 36.1 C L 36.7 C Pulse Rate 120 H 67 57 L Respiratory Rate 20 20 14 Blood Pressure 146/100 H 129/68 113/66 Pulse Oximetry 100 99 100 11/18/20 18:19 11/18/20 18:34 11/18/20 19:07 Temperature 36.5 C Pulse Rate 65 65 50 L Respiratory Rate 20 20 16 Blood Pressure 112/73 112/73 116/68 Pulse Oximetry 100 100 97 11/18/20 20:00 11/18/20 22:00 11/19/20 06:00 Temperature 36.6 C 36.8 C Pulse Rate 62 62 72 Respiratory Rate 20 20 20 Blood Pressure 120/59 L 99/63 L Pulse Oximetry 98 98 100 11/19/20 08:00 Temperature Pulse Rate 72 Respiratory Rate 20 Blood Pressure Pulse Oximetry 100 Exam Const: General: alert; No acute distress Orientation/consciousness: patient oriented x3 Limitations: no limitations HENMT: Head: normocephalic and atraumatic Ears: hearing grossly normal bilaterally General nose exam: Normal external nose present and Normal
[2020-11-19 20:45] VITALS: BP 120/74; PULSE 79; RESP 18; TEMP 36.5; O2SAT 100
[2020-11-20] VITALS (15 sets, daily range): BP systolic 93–141; BP diastolic 59–92; PULSE 55–79; RESP 12–20; TEMP 35.8–37; O2SAT 95–100
[2020-11-20 04:55] LABS: Hematocrit 39.7 % (37.0-47.0); Hemoglobin 13.4 g/dL (12.0-15.0); Mean Corpuscular HGB Conc 33.8 g/dl (32-36); Mean Corpuscular Hemoglobin 30.6 pg (26-34); Mean Corpuscular Volume 90.6 fl (80-100); Mean Platelet Volume 9.1 fl (7.4-10.4); Platelet Count Result 408 k/mm3 (150-375); Red Blood Count 4.38 M/mm3 (4.2-5.4); Red Cell Distribution Width 12.7 % (11.5-14.5); White Blood Count 11.8 K/mm3 (4.5-10.0)
[2020-11-20 05:09] LABS: Alanine Aminotransferase 30 U/L (4-35); Albumin Level 4.1 g/dL (3.5-5.1); Alkaline Phosphatase 72 U/L (38-126); Anion Gap 5 mmol/L (8-16); Aspartate Amino Transferase 21 U/L (14-36); Bilirubin,Total 0.5 mg/dL (0.2-1.3); Blood Urea Nitrogen 13 mg/dL (7-17); Calcium 9.1 mg/dL (8.4-10.2); Carbon Dioxide 28 mmol/L (22-30); Chloride 106 mmol/L (98-107); Estimated CRCL calculation 110 ml/min; Estimated Glomerular Filt Rate > 60; Glucose 97 mg/dL (65-105); Potassium 4.7 mmol/L (3.4-5.0); Sodium 139 mmol/L (137-145)
--- NOTE | 2020-11-20 10:48 | WPDANESEPPF ---
Anes - Initial Pre Proc Eval Procedure: Operation Date: 11/20/20 12:00 Proposed Procedures p Laparoscopic Cholecystectomy, Possible Open - Morales Luis DO Date/Time: 11/20/20 10:48 Surgeon: Morales Luis DO Pre Op Diagnosis: cholecystitis Patient Data Age: 25 Gender: F Height: 5 ft 3 in Weight: 85.1 kg Last Vital Signs Temp 36.6 C 11/20/20 05:32 Pulse 64 11/20/20 05:32 Resp 18 11/20/20 05:32 BP 117/62 11/20/20 05:32 Pulse Ox 100 11/20/20 05:32 Allergies Allergy/AdvReac Type Severity Reaction Status Date / Time No Known Allergies Allergy Verified 11/18/20 19:03 Home Medications Medication Instructions Recorded Confirmed Type ibuprofen 800 mg PO Q8-12H PRN 11/18/20 11/18/20 History Laboratory Tests 11/20/20 11/20/20 11/20/20 04:41 04:41 04:41 WBC 11.8 K/mm3 H K/mm3 (4.5-10.0) RBC 4.38 M/mm3 M/mm3 (4.2-5.4) Hgb 13.4 g/dL g/dL (12.0-15.0) Hct 39.7 % % (37.0-47.0) MCV 90.6 fl fl (80-100) MCH 30.6 pg pg (26-34) MCHC 33.8 g/dl g/dl (32-36) RDW 12.7 % % (11.5-14.5) Plt Count 408 k/mm3 H k/mm3 (150-375) MPV 9.1 fl fl (7.4-10.4) Sodium 139 mmol/L mmol/L (137-145) Potassium 4.7 mmol/L mmol/L (3.4-5.0) Chloride 106 mmol/L mmol/L (98-107) Carbon Dioxide 28 mmol/L mmol/L (22-30) Anion Gap 5 mmol/L L mmol/L (8-16) BUN 13 mg/dL mg/dL (7-17) Creatinine 0.70 mg/dL mg/dL (0.7-1.0) Estim Creat Clear Calc 110 ml/min ml/min Estimated GFR > 60 (59 - ) Glucose 97 mg/dL mg/dL (65-105) Calcium 9.1 mg/dL mg/dL (8.4-10.2) Total Bilirubin 0.5 mg/dL mg/dL (0.2-1.3) AST 21 U/L U/L (14-36) ALT 30 U/L U/L (4-35) Alkaline Phosphatase 72 U/L U/L (38-126) Total Protein 7.0 g/dL g/dL (6.3-8.2) Albumin 4.1 g/dL g/dL (3.5-5.1) Blood Type O Positive Antibody Screen Negative Patient hx anesthesia problems: none Family hx anesthesia problems: none [facility] Past Medical History Medical History (Updated 11/20/20 @ 10:48 by Bin Lafleur MD) History of depression Obesity Surgical History Surgical History History of tonsillectomy Family History Family History Mother Cancer Sibling Craniosynostosis Sibling Anemia Sibling Asthma Social History Social History Smoking packs per day: 1 Smoking cigarettes per day: 20.0 Years smoked: 10 Smoking pack-years: 10.00 Smoking status: Current every day smoker Tobacco type: cigarettes Alcohol intake: current Drinks per week: 6 Substance use: current Substance use type: marijuana Other substance usage details: Former Methamphetamine user, 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 Additional occupation/education comments: She works at [employer]. Gender identity (if verbalized by the patient): Female Spiritual care concerns: No Agree to blood products: Yes Anes - Eval Final PreProcedure Day of Procedure 11/20/20 10:48 Patient weight: obese Heart: regular rate and rhythm Lungs: clear to auscultation Airway: Mallampati scale class II Neurological: alert and oriented Last oral intake: >/= 8 hours ASA classification: II Emergent: no Anesthetic plan: proceed Anesthesia type and monitoring: general ETT and standard monitoring Informed Consent: The patient's anesthetic plan and its attendant risks and benefits were discussed with the patient/family/POA. Questions were solicited and answers provided to the satisfaction of the pa
[2020-11-20] MEDS: LACTATED RINGERS 1,000 ML 30 ML IV CONT (10:50)
--- NOTE | 2020-11-20 11:52 | WPDHPUPDATE1 ---
History and Physical Update Update Date/Time: 11/20/20 11:52 History and Physical has been reviewed, including an updated exam of the patient. There are NO changes in the patient's condition. Risks, benefits, and alternatives have been discussed and questions answered. Patient agrees to proceed with procedure.
--- NOTE | 2020-11-20 11:56 | SUR.PREOP ---
1120-PT UP TO BR TO VOID.
[2020-11-20] MEDS: ceFAZolin 2 GM/D5W 50 ML 2 GM/50 ML BAG IVPB (12:15)
[2020-11-20] MEDS: BUPIVACAINE/EPINEPHRINE 0.5% 30 ML VIAL INFILTRATE (12:40)
--- NOTE | 2020-11-20 13:16 | PM.PROC ---
Procedure Note - Detailed Date of procedure: 11/20/20 Pre-op diagnosis: Acute calculous cholecystitis Post-op diagnosis: same Procedure performed: Laparoscopic Cholecystectomy Description of procedure: Procedure as well as risks, benefits, and alternatives were discussed with patient. Written consent was obtained and placed in chart prior to procedure. The patient was brought back to surgical suite. Patient was placed in supine position on operating table. Time-out was done to confirm patient and procedure. Patient was then intubated by the anesthesia department. Abdomen was prepped and draped in sterile fashion using chlorhexidine prep. 0.5% bupivacaine with epinephrine was infiltrated at each site of incision. A 5 millimeter incision was made near the umbilicus, and a 5 millimeter Optiview trocar was advanced through the abdominal layers under direct visualization. Once inside the abdominal cavity, carbon dioxide was insufflated to create a pneumoperitoneum. The camera was inserted and the abdomen was inspected. No immediate abnormalities were identified. The patient was placed in reverse Trendelenburg position and rotated slightly to the left. An 11 millimeter incision was made in the subxiphoid region, and an 11 millimeter trocar was inserted under direct visualization. Two 5 millimeter incisions were made in the right upper quadrant, and two 5 millimeter trocars were inserted under direct visualization. The gallbladder was identified and grasped at the fundus and retracted superiorly. It was then grasped at the infundibulum retracted laterally. Careful dissection around the neck of the gallbladder was performed using blunt dissection with a [place] grasper and hook electrocautery. The cystic duct was identified, and a window was created behind it. The cystic artery was also identified and a window was created behind it. The critical view of safety was identified, visualizing the cystic duct running directly into the neck of the gallbladder, and the cystic artery running directly into the wall of the gallbladder. A 5 millimeter clip cloth cutter was then used to place 2 clips proximally and 1 clip distally on both the cystic duct and cystic artery. They were then both transected using endoscopic scissors. Once safely away from the ayush hepatitis, the gallbladder was dissected free from the liver bed using hook electrocautery. Hemostasis was achieved along the way. The gallbladder was removed completely and then removed through the subxiphoid port. The liver bed was then inspected. Hemostasis appeared adequate, and our clips appeared secure. The area was gently irrigated with sterile saline. No other abnormalities were seen. The patient was flattened out in bed, and 1 final inspection was made around the abdominal cavity. The subxiphoid port was removed, and a Hernan Nitesh cone was used to approximate the fascia with an 0-Vicryl simple interrupted suture. The remaining ports were then removed under direct visualization, the camera was removed, and the pneumoperitoneum was released. The skin of the incisions was approximated using 4-0 Monocryl subcuticular sutures. Exofin glue was applied on top. The patient was then awakened from anesthesia, extubated, and transferred to recovery. Anesthesia: GETA and local (0.5% bupivicaine with epi) Surgeon: Morales Luis DO Estimated blood loss (mL): 5 Drains: No Packing: No Pathology: yes Complications: No immediate complications Condition: stable (Patient tolerated procedure well, and is currently resting comfortably in recovery.) Disposition: floor Findings: This is a 25-year-old woman who presented to the emergency department of on 11/18/2020 with right upper quadrant pain for the past 3-4 days. Workup in the emergency department showed evidence of acute calculous cholecystitis and she was admitted the hospital for further treatment. She continued to have pain on 11/19/2020, therefore laparosc
[2020-11-20] MEDS: fentaNYL CITRATE INJ (*CRX) 100 MCG/2 ML VIAL 25 MCG IV PUSH ×8 (13:25→13:55)
[2020-11-20] MEDS: LACTATED RINGERS 1,000 ML 100 ML IV CONT (14:00)
--- NOTE | 2020-11-20 14:29 | PC.NURSE ---
Patient returned to room from recovery and resting quietly. Surgical sites open to air, no drainage noted. Call light within reach. continue to monitor.
[2020-11-20] MEDS: MORPHINE SULFATE (*CRX) 4 MG/ML INJ IV PUSH (16:24)
[2020-11-20] MEDS: NICOTINE (*PBKC) 21 MG PATCH 1 PATCH TRANSDERM (17:34)
--- NOTE | 2020-11-20 17:38 | PC.NURSE ---
Patient ate her clear liquid dinner, now is eating pudding and ice cream and tolerating well. Has walked to bathroom to void. Sitting in bed talking on the phone. call light within reach. continue to monitor.
[2020-11-20] MEDS: HYDROcodone/acetaminophen (*CRX) 5-325 MG TABLET 1 TAB PO ×2 (18:18→22:34)
--- NOTE | 2020-11-20 18:58 | PC.NURSE ---
Patient has walked back and forth to the bathroom a couple times since coming back from surgery.
[2020-11-20] MEDS: IBUPROFEN 600 MG TABLET PO (20:39)
[2020-11-21 03:57] VITALS: BP 100/61; PULSE 79; RESP 18; TEMP 36.4; O2SAT 99
[2020-11-21] MEDS: HYDROcodone/acetaminophen (*CRX) 5-325 MG TABLET 1 TAB PO (07:50)
[2020-11-21 07:57] VITALS: BP 127/63; PULSE 68; RESP 20; TEMP 36.4; O2SAT 100
[2020-11-21 08:00] VITALS: PULSE 68; RESP 20; O2SAT 100
--- NOTE | 2020-11-21 09:33 | WPDANESPN ---
Anes - Prog Note Post-Op Date/Time: 11/21/20 09:33 Cardiovascular status: normal Respiratory status: normal Airway patency: baseline Mental status: baseline Post-Op hydration status: normal Vital Signs: Last Vital Signs Temp 36.4 C 11/21/20 07:57 Pulse 68 11/21/20 07:57 Resp 20 11/21/20 07:57 BP 127/63 11/21/20 07:57 Pulse Ox 100 11/21/20 07:57 Pain Score (VAS): 0 I/O: Intake & Output 11/20/20 11/21/20 11/21/20 23:59 07:59 15:59 Intake Total 2080 240 Balance 2080 240 Laboratory Tests 11/20/20 04:41 11/20/20 04:41 Post-procedural complaints: none Patient Feedback: Patient satisfied with anesthetic care.
--- NOTE | 2020-11-21 10:12 | PM.DS ---
DS: Admitting Diagnosis Admitting Diagnosis Admitting Diagnosis: Acute calculous cholecystitis DS: Discharge Diagnosis Discharge Diagnosis (1) Acute calculous cholecystitis: Code(s): K80.00 - Calculus of gallbladder with acute cholecystitis without obstruction Status: Acute DS: Summary Hospital Course Reason for hospitalization: acute calculous cholecystitis Hospital Course: this is a 25-year-old woman who presented to the emergency department on 11/18/2020 with complaints of right upper quadrant pain and nausea. She had been having constant pain for 3 days leading up to this. She denied any fevers or chills. She was also complaining of some right-sided chest pain. A CTA of her chest in the emergency department showed no evidence of PE. She had a gallbladder ultrasound which showed evidence of cholelithiasis with gallbladder wall thickening and pericholecystic edema. She was admitted for further treatment. On 11/20/2020 she underwent laparoscopic cholecystectomy. Surgery was uncomplicated. She was returned to the surgical floor postoperatively and her diet and activity were advanced as tolerated. She was dealing with a significant amount of pain and recovery and was somewhat sedated once coming up to the floor. She was kept in the hospital overnight and on 11/21/2020 she was feeling much better. Her pain was controlled and she was tolerating a low-fat diet. She was discharged on postop day 1. Time spent discussing smoking cessation with patient: 3 to 10 minutes Status at Discharge Functional status at discharge: independent ambulation Overall status at discharge: patient is progressing back to baseline Time Spent with Patient Time attestation: Total time spent providing and/or coordinating discharge services: Time spent: Less than 30 minutes Exam GI: Inspection: non-distended and incision ( intact with glue) GI Palp: Yes Tenderness to palpation present (GI) ( Incisional) and No Guarding due to palpation present (GI) Auscultation: normal bowel sounds DS: Data Data Completed and Pending Pending studies at discharge: Pending at discharge 11/20/20 12:45 Surgical [PTH] Routine Discharge Plan Discharge Attending physician on discharge: Morales Fuentes Consulting providers: Jeaneth Ross Discharging Clinician: Morales Fuentes Anticipated Discharge Date/Time: 11/20/20 16:00 Patient Disposition: Home, Self-Care Activity: other - see discharge instructions Diet: low fat Wound Care Instructions: follow printed instructions Discharge Instructions: DISCHARGE INSTRUCTION SHEET FOR HERNIA, GALLBLADDER AND APPENDIX SURGERIES DR. FUENTES PATIENT TO TAKE HOME 1. May shower in 24 hours, no soaking in bath x 2weeks. 2. Call office for: Wound increasingly painful or bleeding Vomiting Fever of greater than 101 degrees 3. If no bowel movement for three days, take 1 oz. (30 ml) Milk of Magnesia or MiraLax 17g 1 to 2 times daily. 4. No heavy lifting > 10-15 pounds x weeks for hernia repairs and 2 weeks for laparoscopic cholecystectomy or appendectomy. 5. No driving for 3 days or while taking narcotic pain medications. 6. Ice to surgical site for 48 hours (30 min on, then 30 min off). 7. Up walking 10-30 minutes three times per day. 8. Resume previous home medications. 9. Follow-up 10-14 days in office for wound check or as previously scheduled. ([phone]) 10. Oral pain medications prescription to be sent to pharmacy. Take Tylenol 500mg every 6 hours and Ibuprofen 600mg every 6 hours for the first 2 days, then as needed. 11. NUTRITION: Start out by drinking fluids and increase your diet as tolerated. If you experience nausea, try dry toast, crackers, and 7-UP. If nausea or vomiting persists, contact your surgeon?s office. 12. Gallbladders-Low Fat Diet for 2 weeks (send care note of low fat diet)
== END 2020-11-21 13:30 | disposition home or self-care (01) ==
LOC: ANHED 16:59 → ANH3MEDSUR 18:10 → ANHTRC 11-19 09:42
PROVIDERS: Admitting Provider Surgery; Emergency Provider Emergency Medicine; PCP Internal Medicine; Visit Provider Surgery
PROC: 0FT44ZZ Resection of Gallbladder, Percutaneous Endoscopic Approach (ICD-10-PCS; CPT 47562; principal; 2020-11-20 12:00)
DX: K80.10 Calculus of gallbladder with chronic cholecystitis without obstruction (principal); F17.210 Nicotine dependence, cigarettes, uncomplicated; F12.90 Cannabis use, unspecified, uncomplicated; E66.9 Obesity, unspecified; Z68.33 Body mass index [BMI] 33.0-33.9, adult
CPT/HCPCS: 47562; 36415; 71275; 76705; 80053; 81025; 83690; 85025; 85027; 85380; 86850; 86900; 86901; 88304; 96361; 96374; 96376; 99285; A9270; G0378; J0690; J1100; J1170; J1885; J2250; J2270; J2405; J2704; J2710; J3010; J7030; J7120; Q9967

== ENCOUNTER 2021-03-20 16:20 | Emergency (ER) | payer OTHER, MEDICAID, SELFPAY ==
--- NOTE | ~2021-03-20 | CT_ITS ---
EXAMINATION: CT abdomen pelvis w con DATE: 03/20/2021 18:09 INDICATION: Abdominal abscess TECHNIQUE: Computed tomography (CT) of the abdomen and pelvis was performed with 100 mL Omnipaque-350 intravenous contrast. Automated exposure control and iterative reconstruction technique were employe d. The dose-length product was 750.84 mGy-cm. COMPARISON: 02/02/2020 FINDINGS: Lung bases are clear. Heart size is normal. No pericardial or pleural effusion. Cholecystectomy clips the gallbladder fossa. Liver, spleen, pancreas, bilateral adrenal glands and kidneys are normal. Jaffrey els including the appendix are normal. T-shaped IUD in expected position in the retroverted uterus. B ladder is normal. Peripherally enhancing 1.9 cm corpus luteum cyst at the left ovary. Minimal likely physiologic free fluid in the pelvis. The prior as well-defined but more extensive region of phlegmon ous change with inflammatory stranding at the umbilicus has coalesced 2 smaller 1.9 x 1.3 x 1.0 cm pe ripherally enhancing abscess with near complete resolution of the surrounding inflammatory stranding. IMPRESSION: 1. 1.9 x 1.3 x 1.0 cm peripherally enhancing subumbilical abscess at the site of prior more extensive subcutaneous phlegmonous change. Reviewed, dictated and finalized at location A. IMPRESSION: 1. 1.9 x 1.3 x 1.0 cm peripherally enhancing subumbilical abscess at the site o f prior more extensive subcutaneous phlegmonous change.
[2021-03-20 16:24] VITALS: BP 142/81; PULSE 100; RESP 20; TEMP 36.9; O2SAT 98
[2021-03-20 16:35] LABS: Basophils Absolute Auto 0.1 K/mm3 (0.0-0.1); Basophils Percent Auto 0.6 % (0.2-1.2); Eosinophils Absolute Auto 0.2 K/mm3 (0-0.3); Eosinophils Percent Auto 1.7 % (0-4.4); Hematocrit 42.3 % (37.0-47.0); Hemoglobin 14.3 g/dL (12.0-15.0); Immature Granulocyte Absolute 0.06 K/mm3 (0.00-0.031); Immature Granulocyte Percent A 0.5 % (0-0.5); Lymphocytes Absolute Auto 4.16 K/mm3 (0.9-3.2); Lymphocytes Percent Auto 33.2 % (18.3-44.2); Mean Corpuscular HGB Conc 33.8 g/dl (32-36); Mean Corpuscular Hemoglobin 31.9 pg (26-34); Mean Corpuscular Volume 94.4 fl (80-100); Mean Platelet Volume 8.9 fl (7.4-10.4); Monocytes Percent Auto 7.9 % (2.6-8.5); Neutrophils Percent Auto 56.1 % (45.5-73.1); Platelet Count Result 387 k/mm3 (150-375); Red Blood Count 4.48 M/mm3 (4.2-5.4); Red Cell Distribution Width 12.7 % (11.5-14.5); White Blood Count 12.5 K/mm3 (4.5-10.0)
[2021-03-20 16:44] LABS: Alanine Aminotransferase 17 U/L (4-35); Albumin Level 4.5 g/dL (3.5-5.1); Alkaline Phosphatase 110 U/L (38-126); Anion Gap 15 mmol/L (8-16); Aspartate Amino Transferase 34 U/L (14-36); Bilirubin,Total 0.3 mg/dL (0.2-1.3); Blood Urea Nitrogen 14 mg/dL (7-17); Calcium 9.1 mg/dL (8.4-10.2); Carbon Dioxide 19 mmol/L (22-30); Chloride 107 mmol/L (98-107); Estimated CRCL calculation 117 ml/min; Estimated Glomerular Filt Rate > 60; Glucose 105 mg/dL (65-105); Lipase 79 U/L (23-300); Potassium 4.3 mmol/L (3.4-5.0); Sodium 141 mmol/L (137-145)
[2021-03-20 17:22] LABS: Add Urine Microscopic? YES; Appearance Urine Clear (Clear); Bacteria Urine Trace /hpf; Bilirubin Urine Negative (Negative); Blood Urine Negative (Negative); Color Urine Yellow (Yellow); Glucose Urine UA Negative (Negative); Ketones Urine Trace mg/dL (Negative); Leukocyte Esterase Ur Trace LEU/UL (Negative); Mucus Urine Rare /lpf; Nitrate Urine Negative (Negative); Protein Urine Negative (Negative); RBC Urine 0-2 /hpf (0-2); Squamous Epithelial Cell Urine Many /hpf (Few); Urobilinogen Urine Negative mg/dL (<2.0); WBC Urine 0-3 /hpf
[2021-03-20 17:23] VITALS: BP 137/70; PULSE 102; RESP 18; O2SAT 99
[2021-03-20] MEDS: SODIUM CHLORIDE 0.9% IV 1,000 ML 999 ML IV CONT (18:01)
--- NOTE | 2021-03-20 18:51 | ED.GENADULT ---
HPI - General Adult General Chief complaint: Abdominal Pain Stated complaint: Abd Pain Time Seen by Provider: 03/20/21 17:18 Source: patient, RN notes reviewed and old records reviewed Mode of arrival: ambulatory Limitations: no limitations History of Present Illness HPI narrative: Patient a 25-year-old female who presents with umbilical wound that has developed over the last 5 days patient denies fever chills nausea vomiting patient had had a similar occurrence in the past requiring hospitalization. Patient was followed by surgery and hospitalist service on that admission. Patient notes recurrence this time in the same location with rapidly spreading redness to involve just above the umbilicus with tenderness and pain in the umbilicus. Related Data Allergies Allergy/AdvReac Type Severity Reaction Status Date / Time No Known Allergies Allergy Verified 03/20/21 17:28 Review of Systems Review of Systems: All systems reviewed & are unremarkable except as noted in HPI and below PMFSH Past Medical History Medical History History of depression Obesity Surgical History Surgical History History of tonsillectomy Hx laparoscopic cholecystectomy 11/20/20 Family History Family History Mother Cancer Sibling Craniosynostosis Sibling Anemia Sibling Asthma Social History Social History Smoking packs per day: 1 Smoking cigarettes per day: 20.0 Years smoked: 10 Smoking pack-years: 10.00 Smoking status: Current every day smoker Tobacco type: cigarettes Alcohol intake: current Drinks per week: 6 Substance use: current Substance use type: marijuana Other substance usage details: Former Methamphetamine user, 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 Additional occupation/education comments: She works at [employer]. Gender identity (if verbalized by the patient): Female Spiritual care concerns: No Agree to blood products: Yes Exam Narrative: Exam Narrative: GENERAL: Well-appearing, well-nourished, and in no acute distress. HEAD: Normocephalic, atraumatic. EYES: PERRLA and EOMI. ENT: Nares clear, no rhinorrhea or epistaxis. Mucous membranes moist. CHEST: Clear to auscultation. No respiratory distress. No wheezes rales or rhonchi HEART: Regular rate and rhythm. No murmur heard. Normal peripheral pulses. ABDOMEN: Soft, tenderness around the swelling of the umbilicus, nondistended EXTREMITIES: Normal range of motion. No edema. SKIN: Warm, dry, no rash. Patient with redness swelling and tenderness in the umbilicus with erythema spreading above the umbilicus NEURO: No focal deficits. Alert and oriented x3. PSYCH: Normal mood and affect. Course Course Emergency Course: Discussed case with Dr. Ortega the surgeon who will talk with his colleague in regards to follow-up on the patient for acute follow-up would like the patient to be discharged home on Augmentin which she went home last time she will be followed closely to make sure she does not require I D agrees with this treatment plan is afebrile nontoxic-appearing no distress given antibiotics in the emergency department Consultations Consultation #1: Discussed case with general surgeon Dr. Ortega who is reviewed the case and imaging will have the patient follow in clinic acutely outpatient to be started on Augmentin would like the wound margins marked to watch for progression Date: 03/20/21 Time: 19:11 Vital Signs Vital signs: Vital Signs Temperature 98.4 F 03/20/21 16:24 Pulse Rate 100 03/20/21 16:24 Respiratory Rate 20 03/20/21 16:24 Blood Pressure 142/81 H 03/20/21 16:24 Pulse Oximetry 98 03/20/21 16:24 Tempera
[2021-03-20 19:20] VITALS: BP 131/86; PULSE 91; RESP 16; TEMP 36.4; O2SAT 100
== END 2021-03-20 19:20 | disposition home or self-care (01) ==
PROVIDERS: Emergency Medicine; Emergency Provider Emergency Medicine; PCP Internal Medicine
DX: L02.211 Cutaneous abscess of abdominal wall (principal); E66.9 Obesity, unspecified; Z68.37 Body mass index [BMI] 37.0-37.9, adult; F17.210 Nicotine dependence, cigarettes, uncomplicated
CPT/HCPCS: 36415; 74177; 80053; 81001; 81025; 83690; 85025; 96365; 96375; 99284; J0131; J2543; J7030; Q9967

== ENCOUNTER 2021-07-10 10:50 | Emergency (ER) | payer OTHER, MEDICAID, SELFPAY ==
--- NOTE | 2021-07-10 11:06 | ED.SKABFB ---
HPI - Skin/Abscess/Foreign Bdy General Chief complaint: Skin/Abscess/Foreign Body Stated complaint: ? Infected Tattoo Time Seen by Provider: 07/10/21 11:04 Source: patient Mode of arrival: ambulatory Limitations: no limitations History of Present Illness HPI narrative: The patient is a 25 yo who presents to the ER for evaluation of left forearm irritation. She reports redness at the site. She received the tattoo 8 days ago and does report initial redness and swelling the day after. Patient reports throbbing pain at the site. Pain is mild. No bleeding. She has had some clear drainage from the area; no purulence or bleeding. She denies fever or chills. No history of skin infections. Related Data Allergies Allergy/AdvReac Type Severity Reaction Status Date / Time No Known Allergies Allergy Verified 04/13/21 10:26 Review of Systems Review of Systems: CONSTITUTIONAL: Denies fever CARDIOVASCULAR: Denies chest pain RESPIRATORY: Denies cough or dyspnea. GASTROINTESTINAL: Denies abdominal pain SKIN: Denies rash, reports forearm pain, irritation of left forearm tattoo MUSCULOSKELETAL: Denies back pain NEUROLOGIC: Denies headache PMFSH Past Medical History Medical History History of depression Obesity Surgical History Surgical History History of tonsillectomy Hx laparoscopic cholecystectomy 11/20/20 Family History Family History Mother Cancer Sibling Craniosynostosis Sibling Anemia Sibling Asthma Social History Social History Smoking packs per day: 1 Smoking cigarettes per day: 20.0 Years smoked: 10 Smoking pack-years: 10.00 Smoking status: Current every day smoker Tobacco type: cigarettes Alcohol intake: current Drinks per week: 6 Substance use: current Substance use type: marijuana Other substance usage details: Former Methamphetamine user, 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 Additional occupation/education comments: She works at [employer]. Gender identity (if verbalized by the patient): Female Spiritual care concerns: No Agree to blood products: Yes Exam Narrative: GENERAL: Awake, alert, conversant HEAD: Normocephalic, atraumatic. EYES: PERRLA and EOMI. ENT: Nares clear, no rhinorrhea or epistaxis. Mucous membranes moist. NECK: Supple. CHEST: No respiratory distress, breathing even and non labored HEART: Regular rate, sinus rhythm ABDOMEN:Non distended, non tender EXTREMITIES: Normal range of motion. No edema. Left forearm irritation, surrounding the border of the tattoo, mild erythema, mild warmth. No purulence. There is no wound that I am able to culture. Patient without any streaking erythema. No limitation in elbow or wrist movement. SKIN: Warm, dry, . NEURO:No focal deficits. Alert and oriented x3 MDM - Skin/Abscess/Foreign Bdy MDM Narrative Medical decision making narrative: Patient presenting for evaluation of left forearm irritation secondary to recent tattoo. At the time of assessment, ABCs are intact and vital signs are stable. Physical exam is notable for a mildly erythematous, edematous, warm area to the left forearm about the border of the tattoo. No streaking erythema. No evidence of abscess. No crepitus. Patient is neurovascularly intact. Differential includes allergic delayed hypersensitivity reaction versus early cellulitis. No systemic symptoms. Given needle involvement, will prophylactically cover with Bactrim Keflex, close follow-up back to the ER or to plastic surgery if wound is to worsen. Patient was then discharged home in stable condition. Differential Diagnosis Differential diagnosis: Likely abscess of skin or subcutaneous tissue, urtic
[2021-07-10 11:42] VITALS: BP 148/84; PULSE 90; RESP 18; TEMP 36.9; O2SAT 97
== END 2021-07-10 12:15 | disposition home or self-care (01) ==
PROVIDERS: Emergency Provider Emergency Medicine; PCP Internal Medicine
DX: L03.114 Cellulitis of left upper limb (principal); E66.9 Obesity, unspecified; Z68.39 Body mass index [BMI] 39.0-39.9, adult; F17.210 Nicotine dependence, cigarettes, uncomplicated
CPT/HCPCS: 99283

== ENCOUNTER 2024-03-29 14:38 | Outpatient (CLI) | payer OTHER, SELFPAY ==
--- NOTE | ~2024-03-29 | XR_ITS ---
[id number] 03/29/2024 15:00 INDICATION: Left knee pain PROCEDURE: 2 views left knee COMPARISON: No prior studies for comparison. FINDINGS: Fracture, dislocation or subluxation is not identified. The soft tissues appear within norm al limits. No foreign bodies are identified. IMPRESSION: 1: NO ACUTE BONE OR JOINT ABNORMALITY IDENTIFIED. Reviewed, dictated and finalized at location B.
== END 2024-03-29 14:39 | disposition home or self-care (01) ==
DX: M25.562 Pain in left knee (principal)
CPT/HCPCS: 73560

== ENCOUNTER 2024-06-15 09:57 | Outpatient (CLI) | payer OTHER, SELFPAY ==
--- NOTE | ~2024-06-15 | MR_ITS ---
MRI of the left knee Clinical history: Pain Technique: Coronal proton density and proton density-weighted images, sagittal proton-density and T2 fat-sat images, and axial proton-density fat-saturated images were acquired. Findings: Anterior and posterior cruciate ligaments are intact. Medial collateral ligament and the la teral collateral ligament complex are intact. Popliteus tendon is intact. Medial and lateral menisci are intact, without evidence of tear. Articular cartilage is well preserved throughout the knee. Bone marrow signals are unremarkable. Extensor mechanism is intact. There is small joint effusion. No Blanc's cyst. Impression: Small joint effusion, otherwise no significant abnormality seen. Reviewed, dictated and finalized at location . Impression: Small joint effusion, otherwise no significant abnormality seen.
== END 2024-06-15 09:58 | disposition home or self-care (01) ==
PROVIDERS: Visit Provider Family Medicine Sports Medicine
DX: M25.462 Effusion, left knee (principal); M23.92 Unspecified internal derangement of left knee
CPT/HCPCS: 73721